=== PATIENT | male | born 1940 | race Caucasian/White ===

== ENCOUNTER → 2017-12-13 | Outpatient (CLI) | payer OTHER, BC ==
[~2017-12-13] MED LIST: ALPHTAB4 PO; ASPI-232 PO; CRS/10 PO; GABA-112 PO; ISOS60TA25 PO; LSN5 PO; METO25TA56 PO; MULT-506 PO; NTRSL3 UT; OMEG10007 PO; RANI150T85 PO; TRAM-10 PO; [UNRECOGNIZED DRUG - OTHER] PO
--- NOTE | 2017-12-13 11:05 | DIAGNOSTIC IMAGING REPORT ---
ULTRASOUND OF THE CAROTID ARTERIES CLINICAL HISTORY: Vertebrobasilar insufficiency. COMPARISON STUDY: No priors. TECHNIQUE: Real-time, grayscale, and color Doppler sonography of the carotid arteries is performed. Images are reviewed in the transverse and longitudinal planes. FINDINGS: Blood pressure in the right arm measures 141/76 and blood pressure in the left arm measures 145/79. The carotid arteries are patent bilaterally and demonstrate antegrade flow. There is minimal atherosclerotic plaque identified. Normal doppler arterial waveforms are seen throughout. Velocity measurements are listed below. Common carotid peak systolic velocity (cm/sec): RIGHT: 41 LEFT: 44 ICA proximal peak systolic velocity (cm/sec): RIGHT: 32 LEFT: 29 ICA mid peak systolic velocity (cm/sec): RIGHT: 47 LEFT: 46 ICA distal peak systolic velocity (cm/sec): RIGHT: 38 LEFT: 48 ICA/CC peak systolic ratio: RIGHT: 1.1 LEFT: 1.1 Antegrade flow was shown in the vertebral arteries. The external carotid arteries are patent. IMPRESSION: 1. There is no sonographic evidence of hemodynamically significant stenosis in the right or left carotid arterial system. 2. Antegrade flow is shown in the vertebral arteries. Electronically signed by: Jesus Montana M.D. 12/13/2017 11:03 AM Dictated Date/Time: 12/13/2017 11:02 AM
--- NOTE | 2017-12-13 11:54 | DIAGNOSTIC IMAGING REPORT ---
BRAIN WITHOUT CONTRAST HISTORY: Mental status change G45.0 Vertebrobasilar [id number] TECHNIQUE: Multiplanar multisequence MRI of the brain was performed without the use of contrast. COMPARISON STUDY: None. FINDINGS: Diffusion-weighted images are considered negative for an acute ischemic insult. There are findings of age-related cerebellar as well as cerebral atrophy. There is a small old ischemic focus lateral aspect right frontal lobe. Minimal chronic small vessel changes present. The ventricular system is midline. The sella and parasellar regions are unremarkable. The internal artery canals are symmetric. IMPRESSION: 1. Minimal chronic small vessel change of aging. 2. Mild age-related cerebellar as well as cerebral atrophy. 3. Otherwise negative study. The above report was generated using voice recognition software. It may contain grammatical, syntax or spelling errors. Electronically signed by: Rodri Lazo M.D. 12/13/2017 11:53 AM Dictated Date/Time: 12/13/2017 11:45 AM
== END | disposition home or self-care (01) ==
LOC: C.ULTR 10:04
PROVIDERS: ATTEND Family Medicine
DX: G45.0 Vertebro-basilar artery syndrome (principal); G31.9 Degenerative disease of nervous system, unspecified

== ENCOUNTER 2018-08-15 23:32 | Inpatient (IN) ==
[2018-08-16 00:51] LABS: Basophils # (auto) 0.02 K/uL (0-0.2); Basophils % (auto) 0.2 %; Eosinophils # (auto) 0.22 K/uL (0-0.5); Eosinophils % (auto) 2.6 %; Hematocrit (blood only) 40.4 % (42-52); Hemoglobin 13.4 g/dL (14.0-18.0); Immature Granulocytes # (auto) 0.02 K/uL (0.00-0.02); Immature Granulocytes % (auto) 0.2 %; Lymphocytes % (auto) 14.3 %; Mean Corpuscular Hgb Conc 33.2 g/dL (32-36); Mean Corpuscular Volume 96.9 fL (80-100); Mean Platelet Volume 9.7 fL (7.4-10.4); Monocytes # (auto) 0.59 K/uL (0.11-0.59); Neutrophils # (auto) 6.33 K/uL (1.4-6.5); Neutrophils % (auto) 75.7 %; Platelet Count 186 K/uL (130-400); RDW Coefficient of Variation 13.4 % (11.5-14.5); RDW Standard Deviation 47.4 fL (36.4-46.3); Red Blood Count 4.17 M/uL (4.7-6.1); White Blood Count 8.38 K/uL (4.8-10.8)
[2018-08-16 01:01] LABS: INR 2.5 (0.9-1.1); Prothrombin Time 24.4 Seconds (9.0-12.0)
[2018-08-16 01:15] LABS: BUN Creatinine Ratio 10.2 (10-20); Calcium 8.5 mg/dl (8.5-10.1); Creatinine Clr Calc Pharmacy 29.8 ml/min; Est GFR (African American) 32.9; Est GFR (Non-African American) 28.4; Potassium 4.2 mmol/L (3.5-5.1)
[2018-08-16] MEDS ORDERED: SODIUM CHLORIDE 0.9% 1000ML 500 ML IV ONE (01:22)
[2018-08-16] MEDS ORDERED: OXYBUTYNIN CHLORIDE 5 MG TAB PO STA (02:37)
--- NOTE | 2018-08-16 03:25 | History & Physical Report ---
Date of Service August 16, 2018 Assessment & Plan (1) Acute urinary retention: Mr. Wing is a 78-year-old gentleman with a history of A. fib/P cardioversion in 2014, hypertension, hypothyroidism, peripheral neuropathy, hypercholesterolemia, GERD who presents to the emergency department due to difficulty urinating since 7 PM this evening. -Admit to Med/Surg -Patient's catheter was irrigated in the emergency department - bedside ultrasound had revealed moderate clot burden in the bladder -Consult urology for management -Case was discussed with Dr. Geller who recommended putting in a three-way Winters and continuing irrigation -Patient has morphine and oxycodone listed on allergy. Patient is able to tolerate tramadol. Continue PRN for pain -Trial of oxybutynin to prevent bladder spasm until obstruction is cleared (2) Hematuria: -Hemoglobin 13.4, continue to trend with daily CBCs -INR level 2.5, hold Coumadin (3) Atrial fibrillation: -s/p cardioversion in 2014 -Continue home amiodarone and metoprolol -Patient currently in sinus rhythm (4) Hypothyroidism: -Continue home levothyroxine (5) Peripheral neuropathy: -Continue home gabapentin (6) Hypercholesteremia: -Continue home rosuvastatin (7) GERD (gastroesophageal reflux disease): -Continue home ranitidine (8) Acute kidney injury: -Creatinine elevated to 2.18 -Likely secondary to obstructive process, recheck BMP daily -Avoid nephrotoxic medications (9) HTN (hypertension): -Hold home lisinopril given MARK, can restart once improved (10) Coronary artery disease: -Continue isosorbide mononitrate -Hold home aspirin given acute hematuria (11) DVT prophylaxis: -Anticoagulation contraindicated due to active hematuria and therapeutic INR level -SCD knees CODE STATUS: Full Disposition: Admit to med/surg F/E/N: N.p.o., pending intervention by urology. LR at 100 mls/hr. No electrolyte abnormalities noted. History of Present Illness Primary Care Provider: Monty Bass MD Mr. Wing is a 78-year-old gentleman with a history of A. fib/P cardioversion in 2014, hypertension, hypothyroidism, peripheral neuropathy, hypercholesterolemia , GERD who presents to the emergency department due to difficulty urinating since 7 PM this evening. Prior to this, he notes that he was urinating blood, with the presence of several clots. He states that he has a burning sensation over his suprapubic area and groin, and was then unable to urinate. He states that he recently had a bladder biopsy done on August 07. His warfarin was restarted after the procedure, and he states he was told that in order to get his levels back to the therapeutic range, he should take double his dose for 2 days. He took 5 mg on Tuesday, 5 mg on night, and then his usual home dose of 2.5mg up until tonight. He did not take his dose of warfarin tonight. He denies fever, chills, nausea, vomiting. He states that his pain occurs intermittently, and is very severe and located over his suprapubic region. Of note, he is a former smoker and quit in 1979. He consumes 4-5 beers a week, but does not drink on a daily basis. He denies use of any recreational drugs. Allergies Allergy/AdvReac Type Severity Reaction Status Date / Time morphine Allergy Unknown ITCHING Verified 08/16/18 02:04 AND HIVES oxycodone AdvReac Unknown SEVERE Verified 08/16/18 02:04 HEADACHES Home Medications Home Medications Medication Instructions Recorded Confirmed Type ingjh-[id number] [Beano] 1 tab PO UD PRN 07/27/18 08/16/18 History amiodarone 200 mg PO QPM 07/27/18 08/16/18 History aspirin [Aspirin Low Dose] 162 mg PO QAM 07/27/18 08/16/18 History gabapentin 600 mg PO TID 07/27/18 08/16/18 History isosorbide mononitrate 30 mg PO QAM 07/27/18 08/16/18 History levothyroxine 25 mcg PO QAM 07/27/18 08/16/18 History lisinopril 2.5 mg PO QAM 07/27/18 08/16/18 History metoprolol tartrate 12.5 mg PO BID 07/27/18 08/16/18 History nitroglycerin 1 dose SUBLINGUAL UD PRN 07/27/18 08/16/18 History omega 5-edj-kkd-fish oil [Fish Oil] 1 cap PO BID 07/27/18 08/16/18 History ranitidine HCl [Zantac] 150 mg PO BID 07/27/18 08/16/18 History rosuvastatin 10 mg PO QPM 07/27/18 08/16/18 History tramadol 50 - 100 mg PO QID PRN 07/27/18 08/16/18 History warfarin 2.5 mg PO HS 07/27/18 08/16/18 History Past Med/Surg History Medical History AAA (abdominal aortic aneurysm) Atrial fibrillation SUCCESSFUL CARDIOVERSION ~2014 Chronic back pain Degenerative disc disease Diverticular disease GERD (gastroesophageal reflux disease) Hearing deficit BILATERAL AIDES History of cardioversion Hyperlipidemia Hypertension Hypothyroidism On anticoagulant therapy Osteoarthritis Surgical History History of arthroscopy RIGHT KNEE X3 History of cardiac cath X1 STENT 1999 History of carpal tunnel release BILATERAL History of cataract surgery BILATERAL History of colonoscopy History of heart artery stent History of repair of rotator cuff RIGHT X2 History of total hip arthroplasty BILATERAL S/P AAA (abdominal aortic aneurysm) repair JULY 2011, [facility]. Social History Current Living Situation: Spouse Feels Safe at Home: Yes Safety Concerns: Feels Safe At This Time Smoking Status: Former smoker Tobacco Type: cigarettes Hx Alcohol Use: No Hx Substance Use: No Beliefs That Will Affect Care: None Preferred Language: Peruvian Filter Cloth Maker Required: No Review of Systems Constitutional: no fever, no chills, no fatigue, no weakness and no anorexia Respiratory: no cough and no dyspnea Cardiovascular: no chest pain, no palpitations, no syncope, no edema and no calf pain Gastrointestinal: + abdominal pain; no nausea, no vomiting and no change in stools Genitourinary (Male): + dysuria and + hematuria Integumentary: no rash and no new lesions Physical Exam 2 Vital Signs (Past 24 Hours): Last Vital Signs Temp 36.4 C L 08/15/18 23:39 Pulse 69 08/16/18 01:27 Resp 16 08/16/18 01:27 BP 166/82 H 08/16/18 01:27 Pulse Ox 97 08/16/18 01:27 Constitutional: well developed, well nourished, + acute distress (patient appears uncomfortable, and is tearful) and healthy appearing Eyes: PERRL, conjunctivae normal, anicteric sclerae Respiratory: normal respiratory effort, lungs clear to auscultation Cardiovascular: RRR, no murmur, no edema Gastrointestinal (Abdomen): Percussion/Palpation: + abdomen tender (tender over suprapubic region) and abdomen soft; no guarding and abdomen not rigid Skin: no rashes, warm and dry Psychiatric: A+Ox3, euthymic affect Genitourinary: winters catheter in place, draining dark red urine Results & Data Laboratory Results Laboratory Results - last 24 hr 08/15/18 08/16/18 08/16/18 00:35 00:35 00:35 WBC 8.38 RBC 4.17 L Hgb 13.4 L Hct 40.4 L MCV 96.9 MCH 32.1 MCHC 33.2 RDW Std Deviation 47.4 H RDW Coeff of Dona 13.4 Plt Count 186 MPV 9.7 Immature Gran % (Auto) 0.2 Neut % (Auto) 75.7 Lymph % (Auto) 14.3 [place] % (Auto) 7.0 Eos % (Auto) 2.6 Baso % (Auto) 0.2 Immature Gran # (Auto) 0.02 Neut # (Auto) 6.33 Lymph # (Auto) 1.20 [place] # (Auto) 0.59 Eos # (Auto) 0.22 Baso # (Auto) 0.02 PT 24.4 H INR 2.5 H Sodium 138 Potassium 4.2 Chloride 105 Carbon Dioxide 24 Anion Gap 9.0 BUN 22 H Creatinine 2.18 H Est Cr Clr Drug Dosing 29.8 Est GFR ( Amer) 32.9 Est GFR (Non-Af Amer) 28.4 BUN/Creatinine Ratio 10.2 Glucose 141 H Calcium 8.5 Supervising Physician Co-Signing Physician Notes Attending addendum: I have physically seen this patient, have supervised the medical residents activities, and agree with the H&P unless as otherwise noted. Assessment and Plan: Gross hematuria/acute urinary retention/MARK/chronic anticoagulation with warfarin-- Continue bladder irrigation begun in the ED. Follow urine culture and sensitivity. Cipro 400 mg IV every 12 hours. Oxybutynin as needed bladder discomfort. Continue tramadol as per outpatient. Consult urology. For now we will not reverse warfarin, the present INR level is 2.5. If hematuria does not improve an appropriate interval, we will partially reverse INR with vitamin K at that time. Atrial fibrillation-- Continue warfarin for now, with daily PT/INR. Continue amiodarone and metoprolol. Remainder of orders and notations as noted. Resident Activity Tracking Resident Involvement: Resident Care Provided Care Provided: Adult Hospital Medicine
[2018-08-16] MEDS ORDERED: NITROGLYCERIN SL 0.4 MG/TAB TAB SL PRN (04:38)
[2018-08-16] MEDS ORDERED: GABAPENTIN 600 MG TAB PO STA (04:38)
[2018-08-16] MEDS ORDERED: ACETAMINOPHEN 325 MG TAB PO PRN (04:38)
[2018-08-16] MEDS: TRAMADOL HCL 50 MG TABLET PO PRN ×2 (04:48→08:59)
[2018-08-16] MEDS: LACTATED RINGER'S 1,000 ML IV SCH ×2 (04:55→15:27)
[2018-08-16] MEDS: AMIODARONE 200 MG TAB PO SCH ×2 (05:12→20:27)
[2018-08-16] MEDS: LEVOTHYROXINE SODIUM 25 MCG TABLET PO SCH (05:12)
[2018-08-16] MEDS: ACETAMINOPHEN 1,000 MG/100 ML VIAL IV SCH ×3 (05:12→21:06)
--- NOTE | 2018-08-16 05:20 | Emergency Department Note ---
Entered by Jennifer Grover acting as a scribe for ED Provider Note Name: Beck Wing Age: [age] year old Arrives Via: The drove the patient Informant: Patient HPI: 78 year old male arrives for evaluation of constant urinary symptoms that started a few hours ago. The patient reports he had a biopsy done on Tuesday because he was passing blood a couple days before but then it stopped. He states there were blood clots in it. The patient reports he is on Coumadin and aspirin. The patient states he is on Coumadin for atrial fibrillation. He states he has never experienced an episode like this before. The patient states he has lower belly pain. He reports he has hip replacement and a stent. The patient denies blood in his stool, vomiting, leg swelling, or back pain. ROS: See above HPI for pertinent positives & negatives. A total of 10 systems reviewed and were otherwise negative. Past Medical History: HTN, AAA, diverticulitis, GI bleed, hyperlipidemia Past Surgical History: heart artery stent, total hip arthroplasty Family History: Family history non-contributory Social History: Former smoker. Feels safe at home. Home Medications: See below. Allergies Morphine, oxycodone Physical: Vitals: BP: 188/85 P: 74 R: 20 T: 97.5 02 Sat: 96 Delivery: Room air Exam: GENERAL: Patient is very uncomfortable appearing and in mild distress. EYES: No scleral icterus, unremarkable pupils. ENT: Mucous membranes moist, no nasal congestion. NECK: No masses appreciated, no meningismus, trachea is midline. RESPIRATORY: No dyspnea. Clear to auscultation and equal bilaterally. No wheeze , no rhonchi. CARDIOVASCULAR: Regular rate and rhythm. No murmurs, rubs, gallops appreciated. GASTROINTESTINAL: Abdomen soft, no peritonitis. Bowel sounds positive. Superpubic mass and tenderness to palpation. BACK: No midline tenderness, no CVA tenderness EXTREMITIES: Normal motion all extremities, no cyanosis, no edema. NEUROLOGIC: Alert and oriented, no acute motor or sensory deficits, no focal weakness, cranial nerves grossly intact. SKIN: No rash, no jaundice, no diaphoresis. ED Course: Prior Medical Record, Triage/Nursing Notes, Medications, Allergies reviewed by Me Vital Signs: reviewed and remarkable for HTn Labs: Reviewed and remarkable for Worsening Cr, Therapeautic INR Interventions: Saline Lock, NSS bolus 500mL IV, Bladder irrigation Imaging: Bedside US by me reveals large clot in bladder with large amount of urine as well. EKG: none Consults: 0131: I reviewed the patient's case with Dr. Malagon, Urology . He advises to place large 3 way winters for continuous bladder irrigation and to admit to hospitalist. 0210: I reviewed the patient's case with Dr. Reagan, [facility]-Hospitalist. He will admit the patient Reassessments/Times: 2349: Past medical records reviewed. The patient was evaluated in room A2, and a complete history and physical examination were performed. 0029: Nursing is currently repeatedly flushing winters catheter and getting large amounts of blood clot. Bedside ultrasound by me reveals large bladder with moderate clot burden within bladder and winters catheter within bladder. 0058: I checked on the patient. Several large clots removed from winters. Urine is becoming more pink and less red. Bedside ultrasound reveals decompressed bladder without large clots appreciated. 0110: I checked on the patient. The patient feels much better. 0125: I paged Dr. Malagon , Urology. 0148: I paged Dr. Reagan, [facility]-Hospitalist. Blood pressure: Elevated - [place] to be Situation. Disposition: Admit to Hospitalist. Prescriptions: None. Differentials: Hematuria, obstructed urethra, urinary retention, anemia, elevated INR. amongst other pathologies. Medical Decision Makin yr old male with recent bladder biopsy who restarted Coumadin a few days ago for his afib arrives in acute urinary retention due to hematuria. Large clots in bladder which nursing gradually removed after extensive amount of time flushing cathether. Renal function bumped from baseline likely secondary to acute retention. Reviewed with Uro who advised started CBI and bring in for management of this and renal injury. Hospitalist on board with plan. Patient stable throughout and feeling much better after bladder drained. Will hold on reversing coumadin given difficultly with getting him therapeautic in first place, plus fact he already didn't take last nights dose as it is. Impression: Acute Urinary Retention Hematuria Acute Kidney Injury Jd Mckeon MD The scribe's documentation has been prepared under my direction and personally reviewed by me in its entirety. I confirm that the note above accurately reflects all work, treatment, procedures, and medical decision making performed by me. Impression & Plan Acute urinary retention, Hematuria, Acute kidney injury Past Med/Surg History Social History Current Living Situation: Spouse Feels Safe at Home: Yes Smoking Status: Never smoker Tobacco Type: cigarettes Hx Alcohol Use: Yes Alcohol type: beer Alcohol Intake Frequency: a few times a month Hx Substance Use: No Beliefs That Will Affect Care: None Visual Impairment: No Limitations Results & Data Vital Signs Vital Signs - 24 hr 08/15/18 23:39 08/16/18 01:27 08/16/18 03:00 Temperature 36.4 C L Temperature Source Oral Sepsis Recent Fever Within 48 Hours No Sepsis New/Unexplained Change in Mental Status No Sepsis Action Taken by Nursing No Action Required Pulse Rate 74 Pulse Rate [Right Finger] 69 62 Pulse Rhythm Regular Pulse Rhythm [Right Finger] Regular Regular Pulse Strength Normal Pulse Strength [Right Finger] Normal Normal Respiratory Rate 20 16 16 Respiratory Effort / Characteristics Non-Labored Spontaneous Non-Labored Non-Labored Respiratory Depth Normal Normal Normal Respiratory Pattern Regular Regular Regular Blood Pressure 188/85 H Blood Pressure [Right Arm] 166/82 H 166/90 H Blood Pressure Mean 119 Blood Pressure Mean [Right Arm] 110 115 Blood Pressure Position Standing Blood Pressure Position [Right Arm] Lying Lying Pulse Oximetry 96 97 96 Oxygen Delivery Method Room Air Room Air Room Air 08/16/18 04:00 08/16/18 04:33 Temperature Temperature Source Sepsis Recent Fever Within 48 Hours Sepsis New/Unexplained Change in Mental Status Sepsis Action Taken by Nursing Pulse Rate 63 Pulse Rate [Right Finger] 110 H Pulse Rhythm Pulse Rhythm [Right Finger] Regular Pulse Strength Pulse Strength [Right Finger] Normal Respiratory Rate 16 16 Respiratory Effort / Characteristics Non-Labored Respiratory Depth Normal Respiratory Pattern Blood Pressure 152/88 H Blood Pressure [Right Arm] 141/92 H Blood Pressure Mean Blood Pressure Mean [Right Arm] 108 Blood Pressure Position Blood Pressure Position [Right Arm] Lying Pulse Oximetry 96 98 Oxygen Delivery Method Room Air Room Air Home Medications Current Medication List: was personally reviewed by me Laboratory Data Attestation: I reviewed the patient's lab results. Result diagrams: 08/15/18 00:35 08/16/18 00:35 Lab Results 08/15/18 08/16/18 08/16/18 Range/Units 00:35 00:35 00:35 WBC 8.38 (4.8-10.8) K/uL RBC 4.17 L (4.7-6.1) M/uL Hgb 13.4 L (14.0-18.0) g/dL Hct 40.4 L (42-52) % MCV 96.9 (80-100) fL MCH 32.1 (25-34) pg MCHC 33.2 (32-36) g/dL RDW Std Deviation 47.4 H (36.4-46.3) fL RDW Coeff of Dona 13.4 (11.5-14.5) % Plt Count 186 (130-400) K/uL MPV 9.7 (7.4-10.4) fL Immature Gran % (Auto) 0.2 % Neut % (Auto) 75.7 % Lymph % (Auto) 14.3 % [place] % (Auto) 7.0 % Eos % (Auto) 2.6 % Baso % (Auto) 0.2 % Immature Gran # (Auto) 0.02 (0.00-0.02) K/uL Neut # (Auto) 6.33 (1.4-6.5) K/uL Lymph # (Auto) 1.20 (1.2-3.4) K/uL [place] # (Auto) 0.59 (0.11-0.59) K/uL Eos # (Auto) 0.22 (0-0.5) K/uL Baso # (Auto) 0.02 (0-0.2) K/uL PT 24.4 H (9.0-12.0) Seconds INR 2.5 H (0.9-1.1) Sodium 138 (136-145) mmol/L Potassium 4.2 (3.5-5.1) mmol/L Chloride 105 (98-107) mmol/L Carbon Dioxide 24 (21-32) mmol/L Anion Gap 9.0 (3-11) BUN 22 H (7-18) mg/dl Creatinine 2.18 H (0.6-1.4) mg/dl Est Cr Clr Drug Dosing 29.8 ml/min Est GFR ( Amer) 32.9 Est GFR (Non-Af Amer) 28.4 BUN/Creatinine Ratio 10.2 (10-20) Glucose 141 H (70-99) mg/dl Calcium 8.5 (8.5-10.1) mg/dl Administered Medications Amiodarone HCl (Cordarone) 200 mg PO QPM AMIRA Stop: 09/15/18 04:37 Last Admin: 08/16/18 05:12 Dose: 200 mg Lactated Ringer's (Lr) 1,000 mls @ 100 mls/hr IV .Q10H AMIRA Stop: 09/15/18 04:37 Last Admin: 08/16/18 04:55 Dose: 100 mls/hr Acetaminophen (Ofirmev) 1,000 mg in 100 mls @ 400 mls/hr IV Q8H AMIRA Stop: 09/15/18 05:59 Last Admin: 08/16/18 05:12 Dose: 400 mls/hr Levothyroxine Sodium (Synthroid) 25 mcg PO DAILYBB AMIRA Stop: 09/15/18 06:29 Last Admin: 08/16/18 05:12 Dose: 25 mcg Tramadol HCl (Ultram) 50 mg PO QID PRN PRN Reason: Pain Stop: 09/15/18 04:37 Last Admin: 08/16/18 04:48 Dose: 50 mg Discontinued Medications Gabapentin (Neurontin) 600 mg PO NOW STA Stop: 08/16/18 04:39 Last Admin: 08/16/18 05:12 Dose: 600 mg Sodium Chloride (Nss 1000ml) 500 mls @ 999 mls/hr IV .Q31M ONE Stop: 08/16/18 01:52 Last Infusion: 08/16/18 03:41 Dose: Admin: 08/16/18 01:49 Dose: 999 mls/hr Oxybutynin Chloride (Ditropan) 5 mg PO NOW STA Stop: 08/16/18 02:38 Last Admin: 08/16/18 03:48 Dose: 5 mg Discharge Plan Visit Data Chief Complaint: Urinary Symptoms Stated Complaint: PASSING BLOOD, CAN NOT URINATE ED Provider: Jd Mckeon Discharge Problem: Acute urinary retention, Hematuria, Acute kidney injury Discharge Instructions Interventions: ED Discharge Assessment Last Done: 08/16/18 04:00 The scribe's documentation has been prepared under my direction and personally reviewed by me in its entirety. I confirm that the note above accurately reflects all work, treatment, procedures, and medical decision making performed by me.
[2018-08-16] MEDS: OXYBUTYNIN CHLORIDE 5 MG TAB PO SCH ×2 (07:40→20:28)
[2018-08-16] MEDS: METOPROLOL TARTRATE 25 MG TAB PO SCH ×2 (07:41→20:35)
[2018-08-16] MEDS: ISOSORBIDE MONO EXTENDED REL 30 MG TABCR PO SCH (07:42)
[2018-08-16] MEDS: GABAPENTIN 300 MG CAP PO SCH ×3 (07:42→20:29)
--- NOTE | 2018-08-16 09:10 | Urology Consultation ---
Date of Consultation August 16, 2018 Assessment & Plan (1) Acute urinary retention: Clot retention with large obstruction of catheter after irrigation and now back on CBI. Good drainage. No major clots. light pink. Approx 1.5 hours of intermittent irrigation to fully clear and irrigate completely. 2 Liters of NS used. Discussed bleeding. Discussed clots. Will monitor through day. If worsening or clotting, may need clot evacuation and fulguration of bleeding. Will monitor. Likely NPO after midnight with plans to OR if unable to control or if recurrent clot retention. Following. (2) Acute kidney injury: -Creatinine elevated to 2.18 -Likely secondary to obstructive process, recheck BMP daily -Avoid nephrotoxic medications History of Present Illness Attending Physician: Cookie Roa MD History of Present Illness Patient had approx 8 hrs of hematuria and worsening clots and retention. Came to ER. Irrigated and drained. Had pain and was admitted. Was able to start CBI. Worsening pain through day. saw in AM and again at noon. CT showed large clot retention. Irrigated with approx 2 liter for large amount of clot. Now light pink without clots and easy flushing. Changed to [address] hematuria catheter. Allergies Allergy/AdvReac Type Severity Reaction Status Date / Time morphine Allergy Unknown ITCHING Verified 08/16/18 02:04 AND HIVES oxycodone AdvReac Unknown SEVERE Verified 08/16/18 02:04 HEADACHES Home Medications Home Medications Medication Instructions Recorded Confirmed Type jmive-i-lqjmkiesivzfo [Beano] 1 tab PO UD PRN 07/27/18 08/16/18 History amiodarone 200 mg PO QPM 07/27/18 08/16/18 History aspirin [Aspirin Low Dose] 162 mg PO QAM 07/27/18 08/16/18 History gabapentin 600 mg PO TID 07/27/18 08/16/18 History isosorbide mononitrate 30 mg PO QAM 07/27/18 08/16/18 History levothyroxine 25 mcg PO QAM 07/27/18 08/16/18 History lisinopril 2.5 mg PO QAM 07/27/18 08/16/18 History metoprolol tartrate 12.5 mg PO BID 07/27/18 08/16/18 History nitroglycerin 1 dose SUBLINGUAL UD PRN 07/27/18 08/16/18 History omega 0-oih-xkl-fish oil [Fish Oil] 1 cap PO BID 07/27/18 08/16/18 History ranitidine HCl [Zantac] 150 mg PO BID 07/27/18 08/16/18 History rosuvastatin 10 mg PO QPM 07/27/18 08/16/18 History tramadol 50 - 100 mg PO QID PRN 07/27/18 08/16/18 History warfarin 2.5 mg PO HS 07/27/18 08/16/18 History Patient History Medical History AAA (abdominal aortic aneurysm) Atrial fibrillation SUCCESSFUL CARDIOVERSION ~2014 Chronic back pain Degenerative disc disease Diverticular disease GERD (gastroesophageal reflux disease) Hearing deficit BILATERAL AIDES History of cardioversion Hyperlipidemia Hypertension Hypothyroidism On anticoagulant therapy Osteoarthritis Surgical History History of arthroscopy RIGHT KNEE X3 History of cardiac cath X1 STENT 1999 History of carpal tunnel release BILATERAL History of cataract surgery BILATERAL History of colonoscopy History of heart artery stent History of repair of rotator cuff RIGHT X2 History of total hip arthroplasty BILATERAL S/P AAA (abdominal aortic aneurysm) repair JULY 2011, [facility]. Social History Current Living Situation: Spouse Feels Safe at Home: Yes Safety Concerns: Feels Safe At This Time Smoking Status: Former smoker Tobacco Type: cigarettes Hx Alcohol Use: No Hx Substance Use: No Beliefs That Will Affect Care: None Preferred Language: Mongolian Rf Engineer Required: No Review of Systems All reviewed. See HPI for full report. Gastrointestinal: + abdominal pain; no nausea, no vomiting and no change in stools Genitourinary (Male): + dysuria and + hematuria Physical Exam 2 Vital Signs (Past 24 Hours): Last Vital Signs Temp 37.5 C 08/16/18 07:10 Pulse 67 08/16/18 07:10 Resp 16 08/16/18 07:10 BP 194/75 H 08/16/18 07:10 Pulse Ox 95 08/16/18 07:10 Constitutional: well developed, well nourished, + acute distress (patient appears uncomfortable, and is tearful) and healthy appearing Eyes: PERRL, conjunctivae normal, anicteric sclerae Respiratory: normal respiratory effort, lungs clear to auscultation Cardiovascular: RRR, no murmur, no edema Gastrointestinal (Abdomen): Percussion/Palpation: + abdomen tender (tender over suprapubic region) and abdomen soft; no guarding and abdomen not rigid Moderate distension near SP region. Soft after irrigation Skin: no rashes, warm and dry Psychiatric: A+Ox3, euthymic affect Genitourinary: Changed to [address] Irrigated for large clot content.
[2018-08-16 09:54] LABS: Basophils # (auto) 0.02 K/uL (0-0.2); Basophils % (auto) 0.2 %; Eosinophils # (auto) 0.01 K/uL (0-0.5); Eosinophils % (auto) 0.1 %; Hematocrit (blood only) 36.8 % (42-52); Hemoglobin 12.5 g/dL (14.0-18.0); Immature Granulocytes # (auto) 0.03 K/uL (0.00-0.02); Immature Granulocytes % (auto) 0.3 %; Lymphocytes % (auto) 7.8 %; Mean Corpuscular Volume 96.3 fL (80-100); Mean Platelet Volume 9.7 fL (7.4-10.4); Monocytes % (auto) 5.2 %; Neutrophils # (auto) 10.04 K/uL (1.4-6.5); Neutrophils % (auto) 86.4 %; Platelet Count 211 K/uL (130-400); RDW Coefficient of Variation 13.5 % (11.5-14.5); RDW Standard Deviation 47.4 fL (36.4-46.3); Red Blood Count 3.82 M/uL (4.7-6.1)
[2018-08-16 10:04] LABS: INR 2.3 (0.9-1.1); Prothrombin Time 22.1 Seconds (9.0-12.0)
[2018-08-16 10:13] LABS: BUN Creatinine Ratio 15.4 (10-20); Calcium 8.9 mg/dl (8.5-10.1); Creatinine Clr Calc Pharmacy 38.2 ml/min; Est GFR (African American) 44.4; Est GFR (Non-African American) 38.3; Magnesium 2.1 mg/dl (1.8-2.4); Potassium 4.4 mmol/L (3.5-5.1)
[2018-08-16] MEDS: OMEGA-3 (PURIFIED FISH OIL) 1 GM CAP PO SCH ×2 (10:38→20:36)
[2018-08-16] MEDS: HYDROmorphone INJ 0.5 MG/0.5 ML SYR IV PRN ×4 (11:06→20:19)
--- NOTE | 2018-08-16 11:31 | CT Scan Report ---
ABDOMEN AND PELVIS CT WITHOUT CONTRAST CT DOSE: 1017.21 mGycm HISTORY: Hematuria TECHNIQUE: Multiaxial CT images of the abdomen and pelvis were performed without contrast. A dose lo wering technique was utilized adhering to the principles of ALARA. COMPARISON STUDY: Abdomen and pelvis CT 06/08/2018. FINDINGS: Bibasilar subpleural articulation consistent with chronic interstitial changes again noted. No pneumoperitoneum. No pneumatosis. Bilateral total hip arthroplasties are noted. No suspicious lyt ic or blastic osseous lesions. The unenhanced liver, spleen, pancreas, and adrenal glands are unremar kable. There are few punctate gallstones. No retroperitoneal lymphadenopathy. There are few punctate bilateral renal stones. Mild bilateral perinephric edema, unchanged. This is likely chronic. There is mild bilateral cortical renal scarring most pronounced within the lower poles. Mild bilateral hydron ephrosis. There are no ureteral stones identified. Trace fluid surrounding the bladder. The bladder i s significantly distended and there is hyperdense material seen within the bladder lumen consistent w ith blood products. There is also gas within the bladder lumen. The bladder bases obscured by metalli c artifact from the hip prostheses. No definite bladder wall thickening. There is a Figueroa catheter wi thin the balloon centered within the bladder. Suboptimal evaluation for bowel pathology due to the la ck of intravenous and oral contrast. However, there is no definite bowel wall thickening or obstructi on. Colonic diverticulosis. Normal appendix. Possible stent graft repair of the abdominal aorta. Righ t iliopsoas atrophy is again noted. IMPRESSION: 1. The bladder is severely distended with hyperdense material within the lumen consistent with blood products. No bladder wall thickening identified. Recommend correlation with cystoscopy to exclude an underlying occult bladder lesion. 2. The Figueroa catheter appears to be in good position. However, clinical correlation recommended to ev aluate for malfunction of the Figueroa catheter due to the severely distended bladder. 3. Mild bilateral hydronephrosis. This is likely due to the distended bladder. There are no obstructi ng ureteral stones identified. 4. Bilateral nephrolithiasis. 5. Trace fluid surrounding the bladder. 6. Cholelithiasis. 7. Additional findings as described above. Electronically signed by: Ryland Rai M.D. 08/16/2018 11:29 AM
[2018-08-16 11:46] LABS: Appearance Urine Clear (Clear); Bacteria Urine Automated Negative (Negative); Bilirubin Urine Negative (Negative); Cast Urine Automated 0 /lpf (0-5); Color Urine Orange; Epithelial Cell Urine Auto 0-5 /lpf (0-5); Glucose Urine UA Negative (Negative); Ketones Urine Negative (Negative); Leukocyte Esterase Urine Negative (Negative); Nitrite Urine Negative (Negative); Protein Urine Negative (Negative); Specific Gravity Urine 1.007 (1.000-1.030); Urobilinogen Urine Negative (Negative)
--- NOTE | 2018-08-16 12:18 | History & Physical Bridge Note ---
Date of Service August 16, 2018 History & Physical Bridge Note I have examined the patient, reviewed the History & Physical and in the interval since the performance of the History & Physical I have noted the following changes of clinical significance: Patient still having significant lower abdominal pain. I discussed the case with urology at the bedside. I reviewed the CT of the abdomen/pelvis which shows significant bladder distention. He denies chest pain or shortness of breath, denies headaches or lightheadedness , denies pruritus since starting the Dilaudid given his history of allergy to morphine. His bladder irrigation is coming out but is most likely going in and out without going through the bladder as per urology Urology at the bedside preparing to change out the catheter and fix the obstruction hopefully. Vitals reviewed Gen: AAOx3, NAD HEENT: Anicteric sclerae, EOMI CV: RRR no mgr nl S1S2 Pulm: CTAB no wcr Abd: +BS positive significant distention of the bladder almost to the level of the umbilicus with positive tenderness to palpation, otherwise soft and nontender in the abdomen Ext: No edema, 2+ DP pulses Skin: No rashes, warm/dry Neuro: Full strength throughout Creatinine improved 1.7, WBC count up to 11.6 from 8, hemoglobin slight drop down to 12.5 INR decreased to 2.3 78-year-old male here with recent bladder biopsy which was negative for malignancy, on Coumadin for history of paroxysmal A. fib, here with hematuria and urinary obstruction likely secondary to clot. Also with AK I secondary to obstruction. -Urology management is greatly appreciated Renal failure is improving and should continue to improve with relief of obstruction Continue to follow hemoglobin given hematuria -Continue holding Coumadin-he is in sinus rhythm on exam -Consider giving vitamin K if hematuria persists
[2018-08-16] MEDS: ROSUVASTATIN CALCIUM 20 MG TAB PO SCH (20:22)
[2018-08-17] MEDS: LACTATED RINGER'S 1,000 ML IV SCH ×2 (03:20→16:32)
[2018-08-17] MEDS: HYDROmorphone INJ 0.5 MG/0.5 ML SYR IV PRN ×4 (03:56→22:09)
[2018-08-17] MEDS: ACETAMINOPHEN 1,000 MG/100 ML VIAL IV SCH ×3 (05:46→21:03)
[2018-08-17] MEDS: LEVOTHYROXINE SODIUM 25 MCG TABLET PO SCH (05:49)
[2018-08-17 07:34] LABS: Basophils # (auto) 0.02 K/uL (0-0.2); Basophils % (auto) 0.2 %; Eosinophils # (auto) 0.21 K/uL (0-0.5); Eosinophils % (auto) 2.4 %; Hematocrit (blood only) 31.5 % (42-52); Hemoglobin 10.3 g/dL (14.0-18.0); Immature Granulocytes # (auto) 0.02 K/uL (0.00-0.02); Immature Granulocytes % (auto) 0.2 %; Lymphocytes % (auto) 13.8 %; Mean Corpuscular Hgb Conc 32.7 g/dL (32-36); Mean Corpuscular Volume 98.7 fL (80-100); Mean Platelet Volume 9.9 fL (7.4-10.4); Monocytes # (auto) 0.67 K/uL (0.11-0.59); Monocytes % (auto) 7.7 %; Neutrophils # (auto) 6.55 K/uL (1.4-6.5); Neutrophils % (auto) 75.7 %; Platelet Count 132 K/uL (130-400); RDW Coefficient of Variation 13.8 % (11.5-14.5); RDW Standard Deviation 49.6 fL (36.4-46.3); Red Blood Count 3.19 M/uL (4.7-6.1); White Blood Count 8.67 K/uL (4.8-10.8)
[2018-08-17 08:09] LABS: BUN Creatinine Ratio 19.3 (10-20); Calcium 8.2 mg/dl (8.5-10.1); Creatinine Clr Calc Pharmacy 58.5 ml/min; Est GFR (African American) 74.4; Est GFR (Non-African American) 64.2; Magnesium 2.1 mg/dl (1.8-2.4); Potassium 3.9 mmol/L (3.5-5.1)
[2018-08-17] MEDS: GABAPENTIN 300 MG CAP PO SCH ×3 (09:21→20:13)
[2018-08-17] MEDS: METOPROLOL TARTRATE 25 MG TAB PO SCH ×2 (09:22→20:12)
[2018-08-17] MEDS: ISOSORBIDE MONO EXTENDED REL 30 MG TABCR PO SCH (09:23)
[2018-08-17] MEDS: OXYBUTYNIN CHLORIDE 5 MG TAB PO SCH ×2 (09:23→20:15)
[2018-08-17 09:32] LABS: INR 1.7 (0.9-1.1); Prothrombin Time 16.2 Seconds (9.0-12.0)
--- NOTE | 2018-08-17 11:49 | Urology Progress Note ---
Date of Service August 17, 2018 Assessment & Plan (1) Acute urinary retention: Clot retention with large obstruction of catheter after irrigation and now draining clear yellow on CBI after aggressive irrigation and clot removal. Tolerating well. Has [address] Good drainage. NO fevers or chills. Will plan to monitor. Continue to decrease CBI over time. Titrate to off if possible. Will likely need 1-2 more days to fully clear before fully restarting anticoagulation. Possibly able to restart coumadin if doing well as would take 2-3 days to be back. WIll need to monitor INR closely. Will need to assess ability to void at some point, but due to large volume retention may be beneficial to maintain catheter for possibly a week. WIll see how patient does. (2) Acute kidney injury: -Creatinine elevated to 2.18 -Likely secondary to obstructive process, recheck BMP daily -Avoid nephrotoxic medications Subjective Doing much better. Had to be irrigated last evening but tolerated well. CBI running, but able to titrated down. Light yellow urine. No fevers. no chills. No severe issues. Patient was mildly up on coumadin just prior to bleed. ALso on ASA at home. NO other issues. Pathology was negative for malignancy. Gastrointestinal: + abdominal pain; no nausea, no vomiting and no change in stools Genitourinary (Male): + dysuria and + hematuria Physical Exam 2 Vital Signs (Past 24 Hours): Last Vital Signs Temp 36.6 C 08/17/18 07:44 Pulse 60 08/17/18 09:15 Resp 18 08/17/18 07:44 BP 131/65 08/17/18 09:15 Pulse Ox 96 08/17/18 07:44 Constitutional: well developed, well nourished and healthy appearing; no acute distress (patient appears uncomfortable, and is tearful) Eyes: PERRL, conjunctivae normal, anicteric sclerae Respiratory: normal respiratory effort, lungs clear to auscultation Cardiovascular: RRR, no murmur, no edema Gastrointestinal (Abdomen): Percussion/Palpation: abdomen soft; no guarding and abdomen not rigid Skin: no rashes, warm and dry Psychiatric: A+Ox3, euthymic affect
[2018-08-17] MEDS: OMEGA-3 (PURIFIED FISH OIL) 1 GM CAP PO SCH ×2 (12:13→21:02)
--- NOTE | 2018-08-17 14:25 | Hospitalist Progress Note ---
Date of Service August 17, 2018 Assessment & Plan (1) Acute urinary retention: Mr. Wing is a 78-year-old male with a history of PAF s/p cardioversion in 2014, HTN, hypothyroidism, peripheral neuropathy, HL, GERD who presents with urinary rretention and hematuria after a recent bladder biopsy in the setting of taking coumadin. Also with MARK secondary to post-renal obstruction. Bladder full of clot and with severe distension on imaging and with severe lower abdominal pain-all now resolved -Urology management is greatly appreciated-now with replacement of 3 way Patel with CBI and much improved -titrate down on CBI as per Urology, no procedure planned for today it seems -can eat today and then keep NPO after midnight again just in case of procedure -Continue holding Coumadin-he is in sinus rhythm on exam -placed on oxybutynin -may need to leave Patel in for 1 week as per Urology (2) Hematuria: -Hemoglobin dropped slightly to 10.3, some from blood loss anemia acutely and some dilutional from IVFs - continue to trend with daily CBCs -INR down to 1.7 with holding Coumadin -continue to hold coumadin, follow INR -Consult Cardiology for further opinion about when to restart coumadin, if at all? He has not had Afib in 3.5 years since his DCCV and he always can tell when he is in Afib (3) Atrial fibrillation: -s/p cardioversion in 2014 -Continue home amiodarone and metoprolol -Patient currently in sinus rhythm -holding coumadin as above -consult Cardiology as above (4) Hypothyroidism: -Continue home levothyroxine (5) Peripheral neuropathy: -Continue home gabapentin (6) Hypercholesteremia: -Continue home rosuvastatin (7) GERD (gastroesophageal reflux disease): -Continue home ranitidine (8) Acute kidney injury: -Creatinine elevated to 2.18 on admission and now resolved to child health associate 1.11 with relief of obstruction -follow BMP daily -Avoid nephrotoxic medications (9) HTN (hypertension): BPs controlled -Holding home lisinopril given MARK -consider restarting lisinopril tomorrow if child health associate continues to be low -continue isosorbide, metoprolol 12.5mg bid (10) Coronary artery disease: Remote history of MO with stent placement Stable, no acute issues -Continue isosorbide mononitrate,continue statin and metoprolol, holding lisinopril -Holding home aspirin given acute hematuria (11) DVT prophylaxis: -Anticoagulation contraindicated due to active hematuria -SCD knees Full code Dispo-remain in hospital until hematuria completely resolved and not requiring CBI Subjective Pt feeling much better today. Had the Patel get clotted off a bit last night but since then no trouble, urine is clear. No abd pain, no chest pain or SOB, no nausea. He is hungry Review of Systems All systems reviewed & are unremarkable except as noted in HPI & below Physical Exam 2 Vital Signs (Past 24 Hours): Last Vital Signs Temp 36.6 C 08/17/18 07:44 Pulse 60 08/17/18 09:15 Resp 18 08/17/18 07:44 BP 131/65 08/17/18 09:15 Pulse Ox 96 08/17/18 07:44 Constitutional: WD/WN, vitals as above Eyes: PERRL, conjunctivae normal, anicteric sclerae ENMT: external ear and nose normal, oropharynx normal Neck: trachea midline, no thyromegaly Respiratory: normal respiratory effort, lungs clear to auscultation Cardiovascular: Rate/Rhythm: regular rate and regular rhythm Heart Sounds: + gallop (+S3); no murmur Extremities: no edema Gastrointestinal (Abdomen): normal bowel sounds, soft, nontender, no hepatosplenomegaly Musculoskeletal: Extremities: extremities normal to inspection; no cyanosis and no clubbing Skin: no rashes, warm and dry Neurologic: moves all extremities and awake; no focal motor deficits Psychiatric: A+Ox3, euthymic affect Results & Data Laboratory Results 08/17/18 08/17/18 08/17/18 Range/Units 09:12 07:05 07:05 WBC 8.67 (4.8-10.8) K/uL RBC 3.19 L (4.7-6.1) M/uL Hgb 10.3 L (14.0-18.0) g/dL Hct 31.5 L (42-52) % MCV 98.7 (80-100) fL MCH 32.3 (25-34) pg MCHC 32.7 (32-36) g/dL RDW Std Deviation 49.6 H (36.4-46.3) fL RDW Coeff of Dona 13.8 (11.5-14.5) % Plt Count 132 (130-400) K/uL MPV 9.9 (7.4-10.4) fL Immature Gran % (Auto) 0.2 % Neut % (Auto) 75.7 % Lymph % (Auto) 13.8 % [place] % (Auto) 7.7 % Eos % (Auto) 2.4 % Baso % (Auto) 0.2 % Immature Gran # (Auto) 0.02 (0.00-0.02) K/uL Neut # (Auto) 6.55 H (1.4-6.5) K/uL Lymph # (Auto) 1.20 (1.2-3.4) K/uL [place] # (Auto) 0.67 H (0.11-0.59) K/uL Eos # (Auto) 0.21 (0-0.5) K/uL Baso # (Auto) 0.02 (0-0.2) K/uL PT 16.2 H (9.0-12.0) Seconds INR 1.7 H (0.9-1.1) Sodium 136 (136-145) mmol/L Potassium 3.9 (3.5-5.1) mmol/L Chloride 102 (98-107) mmol/L Carbon Dioxide 27 (21-32) mmol/L Anion Gap 7.0 (3-11) BUN 21 H (7-18) mg/dl Creatinine 1.11 D (0.6-1.4) mg/dl Est Cr Clr Drug Dosing 58.5 ml/min Est GFR ( Amer) 74.4 Est GFR (Non-Af Amer) 64.2 BUN/Creatinine Ratio 19.3 (10-20) Glucose 87 (70-99) mg/dl Calcium 8.2 L (8.5-10.1) mg/dl Magnesium 2.1 (1.8-2.4) mg/dl _ (1) Hematuria Glomerular morphologic changes: Hematuria type: gross Qualified Code(s): R31.0 - Gross hematuria (2) Atrial fibrillation Atrial fibrillation type: paroxysmal Qualified Code(s): I48.0 - Paroxysmal atrial fibrillation (3) Hypothyroidism Hypothyroidism type: acquired Qualified Code(s): E03.9 - Hypothyroidism, unspecified (4) HTN (hypertension) Hypertension type: essential hypertension Qualified Code(s): I10 - Essential (primary) hypertension (5) Coronary artery disease Coronary Disease-Associated Artery/Lesion type: [place] artery [place] vs. transplanted heart: [place] heart Associated angina: without angina Qualified Code(s): I25.10 - Atherosclerotic heart disease of [place] coronary artery without angina pectoris
--- NOTE | 2018-08-17 16:48 | Cardiology Consultation ---
Date of Consultation August 17, 2018 Assessment & Plan (1) Atrial fibrillation: Patient maintained in sinus rhythm with amiodarone. His [id number] = 4 secondary to age, hypertension, and vascular disease. Anticoagulation may be placed on hold during periods of acute hematuria. Would recommend continue long -term anticoagulation (secondary to elevated [id number] score) when bleeding risk is deemed acceptable by urology. (2) Coronary artery disease: Clinically stable. Aspirin on hold due to acute hematuria. Continue other medications. (3) HTN (hypertension): Borderline control. Continue to monitor. (4) Hematuria: Treatment as per urology. History of Present Illness Reason for Consultation: Paroxysmal atrial fibrillation, ?Restart anticoagulation Requesting Physician: Dr. Roa Attending Physician: Cookie Roa MD History of Present Illness 78-year-old patient admitted with hematuria. Consultation requested regarding duration of anticoagulation. Coumadin on hold since admission. Patient is chronically anticoagulated for history of paroxysmal atrial fibrillation. History dates back to 2015 when the patient was diagnosed with paroxysmal atrial fibrillation/flutter. He underwent transesophageal echocardiogram guided direct current cardioversion on January 28, 2016. Also carries a history of coronary disease and percutaneous intervention to the right coronary artery 1998 , abdominal aortic angina status post repair, hypertension, hyperlipidemia. Patient currently resting comfortably. His Figueroa bag is now clear. Aspirin and Coumadin on hold. Denies chest pain, palpitations, or shortness of breath. Offers no complaints from a cardiovascular perspective. He typically follows with Dr. Bhavya Branham in [place]. Allergies Allergy/AdvReac Type Severity Reaction Status Date / Time morphine Allergy Unknown ITCHING Verified 08/16/18 02:04 AND HIVES oxycodone AdvReac Unknown SEVERE Verified 08/16/18 02:04 HEADACHES Home Medications Home Medications Medication Instructions Recorded Confirmed Type rxtsk-t-uzebjqkplxzwv [Beano] 1 tab PO UD PRN 07/27/18 08/16/18 History amiodarone 200 mg PO QPM 07/27/18 08/16/18 History aspirin [Aspirin Low Dose] 162 mg PO QAM 07/27/18 08/16/18 History gabapentin 600 mg PO TID 07/27/18 08/16/18 History isosorbide mononitrate 30 mg PO QAM 07/27/18 08/16/18 History levothyroxine 25 mcg PO QAM 07/27/18 08/16/18 History lisinopril 2.5 mg PO QAM 07/27/18 08/16/18 History metoprolol tartrate 12.5 mg PO BID 07/27/18 08/16/18 History nitroglycerin 1 dose SUBLINGUAL UD PRN 07/27/18 08/16/18 History omega 2-vgo-wje-fish oil [Fish Oil] 1 cap PO BID 07/27/18 08/16/18 History ranitidine HCl [Zantac] 150 mg PO BID 07/27/18 08/16/18 History rosuvastatin 10 mg PO QPM 07/27/18 08/16/18 History tramadol 50 - 100 mg PO QID PRN 07/27/18 08/16/18 History warfarin 2.5 mg PO HS 07/27/18 08/16/18 History Patient History Medical History AAA (abdominal aortic aneurysm) Atrial fibrillation SUCCESSFUL CARDIOVERSION ~2014 Chronic back pain Degenerative disc disease Diverticular disease GERD (gastroesophageal reflux disease) Hearing deficit BILATERAL AIDES History of cardioversion Hyperlipidemia Hypertension Hypothyroidism On anticoagulant therapy Osteoarthritis Surgical History History of arthroscopy RIGHT KNEE X3 History of cardiac cath X1 STENT 1999 History of carpal tunnel release BILATERAL History of cataract surgery BILATERAL History of colonoscopy History of heart artery stent History of repair of rotator cuff RIGHT X2 History of total hip arthroplasty BILATERAL S/P AAA (abdominal aortic aneurysm) repair JULY 2011, [facility]. Social History Current Living Situation: Spouse Feels Safe at Home: Yes Safety Concerns: Feels Safe At This Time Smoking Status: Former smoker Tobacco Type: cigarettes Hx Alcohol Use: No Hx Substance Use: No Beliefs That Will Affect Care: None Preferred Language: Yi Ict Help Desk Technician Required: No Review of Systems Pertinent positives noted per HPI. Comprehensive 10 system review otherwise negative. Physical Exam 2 Vital Signs (Past 24 Hours): Last Vital Signs Temp 36.5 C 08/17/18 15:03 Pulse 64 08/17/18 15:03 Resp 18 08/17/18 15:03 BP 150/68 H 08/17/18 15:03 Pulse Ox 94 08/17/18 15:03 Physical Exam: General: NAD, AAO x3, well nourished. HEENT: Normocephalic. Atraumatic. Conjunctiva pink, no scleral icterus. Neck: No carotid bruits, the carotid upstrokes are brisk. No JVD. No HJR Heart: Regular normal S-1 and S-2 no S-3 or S-4 gallop. No murmurs or rub appreciated. PMI is not displaced. No RV heave. Lungs: Clear bilateral without rales , rhonchi, or wheeze. Abdomen: Normal bowel sounds. Soft. Nontender. No masses or organomegaly. No abdominal bruits. Extremities: No clubbing, cyanosis, or edema. Pulses: radial=2/4, Dorsalis pedis =2/4, posterior tibial=2/4. Neuro: Cranial nerves grossly intact. No focal motor deficit. Results & Data ECG Additional Comments: Performed July 28, 2018 M straight sinus rhythm with a first-degree AV block and a right bundle branch block. _ (1) Atrial fibrillation Atrial fibrillation type: paroxysmal Qualified Code(s): I48.0 - Paroxysmal atrial fibrillation (2) Coronary artery disease Coronary Disease-Associated Artery/Lesion type: [place] artery [place] vs. transplanted heart: [place] heart Associated angina: without angina Qualified Code(s): I25.10 - Atherosclerotic heart disease of [place] coronary artery without angina pectoris (3) HTN (hypertension) Hypertension type: essential hypertension Qualified Code(s): I10 - Essential (primary) hypertension (4) Hematuria Glomerular morphologic changes: Hematuria type: gross Qualified Code(s): R31.0 - Gross hematuria
[2018-08-17] MEDS: AMIODARONE 200 MG TAB PO SCH (20:13)
[2018-08-17] MEDS: ROSUVASTATIN CALCIUM 20 MG TAB PO SCH (20:14)
[2018-08-18] MEDS: HYDROmorphone INJ 0.5 MG/0.5 ML SYR IV PRN ×2 (01:56→04:56)
[2018-08-18] MEDS: ACETAMINOPHEN 1,000 MG/100 ML VIAL IV SCH ×2 (05:06→14:19)
[2018-08-18] MEDS: LEVOTHYROXINE SODIUM 25 MCG TABLET PO SCH (05:07)
[2018-08-18] MEDS: LACTATED RINGER'S 1,000 ML IV SCH (05:07)
[2018-08-18 08:06] LABS: Basophils # (auto) 0.02 K/uL (0-0.2); Basophils % (auto) 0.3 %; Eosinophils # (auto) 0.22 K/uL (0-0.5); Eosinophils % (auto) 3.3 %; Hematocrit (blood only) 31.7 % (42-52); Hemoglobin 10.4 g/dL (14.0-18.0); Immature Granulocytes # (auto) 0.01 K/uL (0.00-0.02); Immature Granulocytes % (auto) 0.1 %; Lymphocytes # (auto) 0.92 K/uL (1.2-3.4); Lymphocytes % (auto) 13.8 %; Mean Corpuscular Hgb Conc 32.8 g/dL (32-36); Mean Corpuscular Volume 98.1 fL (80-100); Mean Platelet Volume 9.6 fL (7.4-10.4); Monocytes # (auto) 0.46 K/uL (0.11-0.59); Monocytes % (auto) 6.9 %; Neutrophils # (auto) 5.06 K/uL (1.4-6.5); Neutrophils % (auto) 75.6 %; Platelet Count 130 K/uL (130-400); RDW Coefficient of Variation 13.4 % (11.5-14.5); RDW Standard Deviation 48.1 fL (36.4-46.3); Red Blood Count 3.23 M/uL (4.7-6.1); White Blood Count 6.69 K/uL (4.8-10.8)
[2018-08-18 08:16] LABS: INR 1.4 (0.9-1.1); Prothrombin Time 14.1 Seconds (9.0-12.0)
[2018-08-18 08:41] LABS: BUN Creatinine Ratio 12.9 (10-20); Calcium 8.6 mg/dl (8.5-10.1); Creatinine Clr Calc Pharmacy 52.8 ml/min; Est GFR (African American) 65.7; Est GFR (Non-African American) 56.7; Magnesium 2.2 mg/dl (1.8-2.4)
[2018-08-18] MEDS: METOPROLOL TARTRATE 25 MG TAB PO SCH (09:03)
[2018-08-18] MEDS: GABAPENTIN 300 MG CAP PO SCH ×2 (09:03→14:19)
[2018-08-18] MEDS: OXYBUTYNIN CHLORIDE 5 MG TAB PO SCH (09:04)
--- NOTE | 2018-08-18 09:05 | Urology Progress Note ---
Date of Service August 18, 2018 Assessment & Plan (1) Hematuria: Recommend CBI remain clamped/discontinued. No signs of hematuria upon exam, continue to monitor. See previous URO notes from Dr. Geller for anticoagulation recommendations. No urologic intervention needed today, OK to provide diet. Patient has existing appointment with Dr. Thomas on 08/23/18 @ 10:30am. Recommend Figueroa remain in place until then, will assess readiness for TOV at that time based on patient progression after anticoagulation has been resumed. Will sign off, please contact our service with questions/concerns or change in patient status. (2) Acute urinary retention: Subjective 78YO male with hematuria. Patient reports feeling much better today. Reports burning in penis/catheter. Denies other pain. Denies abdominal pain/distention. Denies fever/chills. Denies nausea/vomiting. CBI remains clamped, urine in tubing is straw yellow. Review of Systems All systems reviewed & are unremarkable except as noted in HPI & below Physical Exam 2 Vital Signs (Past 24 Hours): Last Vital Signs Temp 36.6 C 08/18/18 07:21 Pulse 58 L 08/18/18 07:21 Resp 18 08/18/18 07:21 BP 159/69 H 08/18/18 07:21 Pulse Ox 92 08/18/18 07:21 Physical Exam: WN/WD NAD. Respiratory effort normal. No JVD. Abdomen not distended. Soft, nontender. Bladder normal to palpation. Figueroa remains in place, patent, draining straw yellow urine. No hematuria noted. CBI remains clamped. A&O x3, appropriate affect. _ (1) Hematuria Glomerular morphologic changes: Hematuria type: gross Qualified Code(s): R31.0 - Gross hematuria
[2018-08-18] MEDS: ISOSORBIDE MONO EXTENDED REL 30 MG TABCR PO SCH (09:21)
--- NOTE | 2018-08-18 13:06 | Discharge Summary ---
Date of Service August 18, 2018 Admission HPI Per Admitting Provider Mr. Wing is a 78-year-old gentleman with a history of A. fib/P cardioversion in 2014, hypertension, hypothyroidism, peripheral neuropathy, hypercholesterolemia , GERD who presents to the emergency department due to difficulty urinating since 7 PM this evening. Prior to this, he notes that he was urinating blood, with the presence of several clots. He states that he has a burning sensation over his suprapubic area and groin, and was then unable to urinate. He states that he recently had a bladder biopsy done on August 07. His warfarin was restarted after the procedure, and he states he was told that in order to get his levels back to the therapeutic range, he should take double his dose for 2 days. He took 5 mg on Tuesday, 5 mg on night, and then his usual home dose of 2.5mg up until tonight. He did not take his dose of warfarin tonight. He denies fever, chills, nausea, vomiting. He states that his pain occurs intermittently, and is very severe and located over his suprapubic region. Of note, he is a former smoker and quit in 1979. He consumes 4-5 beers a week, but does not drink on a daily basis. He denies use of any recreational drugs. Principal Diagnosis Acute urinary retention, hematuria, acute kidney injury Discharge Exam Constitutional WD/WN, vitals as above Eyes PERRL, conjunctivae normal, anicteric sclerae ENMT external ear and nose normal, oropharynx normal Neck trachea midline, no thyromegaly Respiratory normal respiratory effort, lungs clear to auscultation Cardiovascular Rate/Rhythm: regular rate and regular rhythm Heart Sounds: + gallop (+S3); no murmur Extremities: no edema Gastrointestinal (Abdomen) normal bowel sounds, soft, nontender, no hepatosplenomegaly Musculoskeletal Extremities: extremities normal to inspection; no cyanosis and no clubbing Skin no rashes, warm and dry Neurologic moves all extremities and awake; no focal motor deficits Psychiatric A+Ox3, euthymic affect Genitourinary Figueroa catheter in place with clear yellow urine in Figueroa bag Discharge Data Allergies Allergy/AdvReac Type Severity Reaction Status Date / Time morphine Allergy Unknown ITCHING Verified 08/16/18 02:04 AND HIVES oxycodone AdvReac Unknown SEVERE Verified 08/16/18 02:04 HEADACHES Consultations Urology Cardiology Ordered Studies 08/16/18 09:45 CT abd pelvis wo con Urgent Hospital Course (1) Acute urinary retention: Mr. Wing is a 78-year-old male with a history of PAF s/p cardioversion in 2014, HTN, hypothyroidism, peripheral neuropathy, HL, GERD who presents with urinary retention and hematuria after a recent bladder biopsy in the setting of taking coumadin. Also with MARK secondary to post-renal obstruction. Bladder full of clot and with severe distension on imaging and with severe lower abdominal pain-all now resolved -Urology management is greatly appreciated-now with replacement of 3 way Figueroa with CBI and much improved. Continuous bladder irrigation was discontinued prior to discharge and he was passing his urine out through the Figueroa catheter -He will continue the Figueroa catheter upon discharge at home and follow-up with urology next week as scheduled for a trial void in the office -Okay to restart Coumadin on 08/19, he would have a PT/INR checked next 08/23/18 -placed on oxybutynin while here but no need to continue upon discharge -Follow-up with urology as planned (2) Hematuria: Secondary to bladder polyp resection which was benign on pathology, and in the setting of taking Coumadin for anticoagulation -Hemoglobin dropped slightly to 10.3 and remained stable, some from blood loss anemia acutely and some dilutional from IVFs -PT/INR was 1.4 on the day of discharge-Coumadin was held throughout the hospital stay -continue to hold coumadin, but okay to restart on 08/19 at usual home doses without a loading dose -Follow-up PT/INR next week as above -Consulted Cardiology for further opinion about when to restart coumadin, if at all? He has not had Afib in 3.5 years since his DCCV and he always can tell when he is in Afib. Cardiology consult appreciated and said that because his chads 2 score is high enough, he should restart it but there is no urgency to this. He certainly does not need bridging anticoagulation in the meantime as he remains in a normal sinus rhythm. (3) Atrial fibrillation: -s/p cardioversion in 2014 -Continue home amiodarone and metoprolol -Patient currently in sinus rhythm -holding coumadin as above with restarting tomorrow -consult Cardiology as above (4) Hypothyroidism: -Continue home levothyroxine (5) Peripheral neuropathy: -Continue home gabapentin (6) Hypercholesteremia: -Continue home rosuvastatin (7) GERD (gastroesophageal reflux disease): -Continue home ranitidine (8) Acute kidney injury: -Creatinine elevated to 2.18 on admission and now resolved to wire straightener 1.23 with relief of obstruction -Okay to restart lisinopril upon discharge (9) HTN (hypertension): BPs controlled -Held home lisinopril given MARK, but can restart on discharge -continue isosorbide, metoprolol 12.5mg bid (10) Coronary artery disease: Remote history of AK with stent placement Stable, no acute issues -Continue isosorbide mononitrate,continue statin and metoprolol, restart lisinopril as above -Okay to restart home aspirin tomorrow as hematuria has resolved (11) DVT prophylaxis: SCDs were provided Full code Dispo-stable for discharge to home today Total Time Total Time Spent Total Time Spent (In Minutes): Greater than 30 minutes Total Time Includes: Examination of the Patient, Discharge Planning and Medication Reconciliation Discharge Plan Discharge Items Patient Disposition: Home - Self-Care Reason For Visit: ACUTE URINARY OBSTRUCTION, HEMATURIA Discharge Diagnosis: Acute urinary obstruction, hematuria Condition: Good Discharge Goals: Decrease discomfort, Diagnostic testing and Therapeutic intervention Activity: Resume your previous activity Lifting: Gradually increase as tolerated Bathing: No limitations Exercise/Sports: Gradually increase as tolerated Driving/Machine Use: No limitations Non-emergency contact: Primary Care Provider and Urologist Call non-emergency contact if: you have any medication questions, your symptoms worsen, your pain is not controlled, your pain is worsening, your pain is unusual for you, your pain is concerning for you, you have a fever and your temperature is above 100.5 Follow-up/Referrals: Andrei Thomas MD [Family Provider] - 08/23/18 10:30 am Monty Bass MD [Primary Care Provider] - (Follow-up within 1 week) Diet: Heart Healthy Addtl Provider Instructions: You were admitted with urinary retention due to blood clots. You had a catheter placed in your bladder and had the blood clots flushed out. You will be sent home with the Figueroa catheter in place until you are seen by the urologist at your appointment next week. If you notice that the urine is not coming out, you are having increased lower abdominal pain, fever, confusion, or blood clots coming out through the tubing into the bag, please call your urologist right away. If you cannot get through to your urologist or your primary care physician, please go to the emergency room if having severe symptoms. You can restart your Coumadin and your baby aspirin on 08/19/18. Please have your PT/INR checked on 08/23/18. Please follow-up with your primary care physician within 1 week and the urologist as scheduled on 08/23/18. Prescriptions: Continue isosorbide mononitrate 60 mg Tablet Extended Release 24 Hr 30 mg PO QAM RF: 0 ranitidine HCl [Zantac] 150 mg Tablet 150 mg PO BID RF: 0 gabapentin 300 mg Capsule 600 mg PO TID RF: 0 rosuvastatin 20 mg Tablet 10 mg PO QPM RF: 0 metoprolol tartrate 25 mg Tablet 12.5 mg PO BID RF: 0 amiodarone 200 mg Tablet 200 mg PO QPM RF: 0 tramadol 50 mg Tablet 50 - 100 mg PO QID PRN (Reason: Pain) RF: 0 levothyroxine 25 mcg Tablet 25 mcg PO QAM RF: 0 nitroglycerin 0.4 mg Tablet, Sublingual 1 dose Sublingual UD PRN (Reason: CHEST PAINS) RF: 0 lisinopril 5 mg Tablet 2.5 mg PO QAM RF: 0 omega [id number] oil [Fish Oil] 1,000 mg (120 mg-180 mg) Capsule 1 cap PO BID RF: 0 [id number] [Beano] 300 unit Tablet,Disintegrating 1 tab PO UD PRN (Reason: GAS) RF: 0 Visit Report Forms: My [facility] Portal Stand-Alone Forms: My [facility] Discharge Orders: Discharge Order (Routine); Ordered 08/18/18 Ordered By: Cookie Roa Admission Data Admit Date/Time: 08/16/18 12:15 Attending Provider: Cookie Roa Admit Provider: Kishore Agarwal Primary Care Provider: Monty Bass Other Providers: Francesco Geller II ; Glen Reagan ; Tenzin Johnson ; Andrei Thomas ; Carlin Guerra I ; Naveen Hudson ; Jennifer Hernandez ; Alexei Mike Service: Surgical Services Other Pending Studies at Discharge: No
[2018-08-18] MEDS: OMEGA-3 (PURIFIED FISH OIL) 1 GM CAP PO SCH (14:19)
[2018-08-18] MEDS: TRAMADOL HCL 50 MG TABLET PO PRN (14:23)
== END 2018-08-18 16:09 | disposition home or self-care (01) | DRG 696 ==
LOC: ED 23:32 → 3N 23:32 → SUATTDRO 08-16 03:11 → 3N 08-16 04:00